=== PATIENT | male | born 1950 | race Caucasian/White ===

== ENCOUNTER 2020-08-14 05:34 | Outpatient (RCR) | payer MEDICARE ==
[~2020-08-14] VITALS: Ht 175.3 cm; Wt 70.5 kg
== END 2020-08-14 10:29 | disposition home or self-care (01) ==
LOC: PREOP 05:34
PROVIDERS: ATTEND Internal Medicine
DX: Z01.812 Encounter for preprocedural laboratory examination (principal); R13.10 Dysphagia, unspecified; Z20.828 Contact with and (suspected) exposure to other viral communicable diseases
CPT/HCPCS: 87635

== ENCOUNTER 2020-08-17 08:57 | Day surgery (SDC) | payer MEDICARE ==
--- NOTE | 2020-08-09 18:57 | HISTORY AND PHYSICAL ---
DATE OF SERVICE: EGD HISTORY AND PHYSICAL HISTORY OF PRESENT ILLNESS: The patient is a 70-year-old white male, who reports over the past 2 to 3 months, intermittent dysphagia to solids. He has had no subsequent dysphagia to liquids. He denies any significant heartburn symptoms. He reports maybe once a year he will take antacids. He is helping to care for his son, who is terminal with squamous cell cancer of the esophagus for which his symptoms are understandably concerning. He denies melena or bright red blood per rectum and reports his weight has been stable. This is corroborated by a significant change in weight since I last saw him three months ago. He last accomplished colonoscopy in 2016. He had two diminutive tubular adenomas removed and a ten-year screening interval was recommended. He has had no previous EGD evaluation or barium evaluation that he is aware of. SOCIAL HISTORY: He is retired with no past smoking or significant alcohol intake history. He is not aware of any previous history of HPV disease. PHYSICAL EXAMINATION: GENERAL: Revealed a white male, slightly anxious, but in no acute distress. VITAL SIGNS: Blood pressure 118/72, weight 156.2 pounds, stable. HEENT: Oral cavity reveals a Mallampati 1 pharyngeal configuration. NECK: Revealed no JVD, adenopathy or bruits. CHEST: Clear to auscultation. CARDIOVASCULAR: Revealed a regular rate and rhythm without murmur, S3 or S4. ABDOMEN: Soft, supple without mass, organomegaly or tenderness. EXTREMITIES: Reveal no cyanosis, clubbing or edema. ASSESSMENT AND PLAN: For further investigation of dysphagia with the family history for squamous cell cancer of the esophagus, the patient is being set up for EGD evaluation after discussion. Prep instructions were given and questions were answered. Job ID: [id number] DocumentID: [id number] Dictated Date: 08/09/2020 15:24:16 Anime Artist Date: 08/09/2020 15:38:32 Dictated By: BALBINA STEINER MD
[~2020-08-17] VITALS: Ht 175.3 cm; Wt 70.5 kg
[2020-08-17] VITALS (13 sets, daily range): BP systolic 97–131; BP diastolic 57–81
[2020-08-17] MEDS ORDERED: D5 LR IV SOLUTION 1,000 ML IV ONE (09:04)
[2020-08-17] MEDS ORDERED: D5 LR IV SOLUTION 1,000 ML IV STA (09:13)
[2020-08-17] MEDS ORDERED: fentaNYL INJECTION 100 MCG/2 ML AMP IVP ONE (09:15)
[2020-08-17] MEDS ORDERED: LIDOCAINE JELLY 2% 6 ML SYRINGE MM PRN (09:15)
[2020-08-17] MEDS ORDERED: MIDAZOLAM 5 MG/5 ML (VERSED) VIAL IV ONE (09:15)
[2020-08-17] MEDS ORDERED: HURRICAINE EXT TUBE (BENZOCAINE) ONE (10:13)
[2020-08-17] MEDS ORDERED: LIDOCAINE JELLY 2% 6 ML SYRINGE ONE (10:13)
[2020-08-17] MEDS ORDERED: fentaNYL INJECTION 100 MCG/2 ML AMP ONE (10:13)
[2020-08-17] MEDS ORDERED: MIDAZOLAM 5 MG/5 ML (VERSED) VIAL ONE (10:13)
[2020-08-17] MEDS ORDERED: HURRICAINE EXT TUBE (BENZOCAINE) XX ONE (10:45)
--- NOTE | 2020-08-17 11:12 | Pre-Op Note & Conscious Sedat ---
Pre-Operative Progress Note H&P Reviewed The H&P was reviewed, patient examined and no changes noted. Date H&P Reviewed: Aug 17, 2020 Time H&P Reviewed: 09:35 Conscious Sedation Pre-Proced ASA Score 1 For ASA 3 and 4: Consider anesthesia and medical clearance. Also, for patients with a history of failed moderate sedation consider anesthesia. Airway Lungs Heart ASA score ASA 1: a normal healthy patient ASA 2: a patient with a mild systemic disease (mid diabetes, controlled hypertension, obesity ASA 3: a patient with a severe systemic disease that limits activity (angina, COPD, prior Myocardial infarction) ASA 4: a patient with an incapacitating disease that is a constant threat to life (CHF, renal failure) ASA 5: a moribund patient not expected to survive 24 hrs. (ruptured aneurysm) ASA 6: a declared brain- patient whose organs are being harvested. For emergent operations, add the letter E after the classification Mallampati Classification Grade 2 Sedation Plan Analgesia, Amnesia, Plan communicated to team members, Discussed options with patient/fam, Discussed risks with patient/fam The patient is an appropriate candidate to undergo the planned procedure, sedation, and anesthesia. The patient immediately re-assessed prior to indication. BALBINA STEINER MD Aug 17, 2020 11:12
--- NOTE | 2020-08-17 19:14 | OPERATIVE REPORT ---
DATE OF SERVICE: EGD SUMMARY INDICATION FOR THE PROCEDURE: Dysphagia, family history of squamous cell carcinoma of the esophagus, index case being his son diagnosed around the age of 46. DESCRIPTION OF PROCEDURE: The patient was placed in the left lateral decubitus position. The endoscope was inserted in the oral cavity and under direct visualization, esophagus was intubated. Endoscope was passed down the esophagus through the stomach and second portion of the duodenum. A careful inspection was made as the endoscope withdrawn. The patient tolerated the procedure well. FINDINGS: The proximal and mid esophagus were unremarkable. Small sliding hiatal hernia is present without evidence for erosive esophagitis. I could not rule out the possibility of short segment Lira's. Biopsies were obtained. There was no evidence again for ulceration, nodularity and the esophagus was otherwise unremarkable. No evidence of rings, webs, strictures or extrinsic compression noted. No diverticulum noted. The cardia, fundus, antrum, pylorus, pyloric channel, duodenal bulb and second portion of duodenum were unremarkable on gross inspection. ASSESSMENT: Small hiatal hernia is present without evidence for erosive esophagitis. No evidence for obstruction was noted. I discussed the importance of careful attention to mastication and slowing down his eating and drinking fluid with a meal. He is reassured by today's findings. Biopsies are pending to rule out short segment Lira's. Job ID: [id number] DocumentID: [id number] Dictated Date: 08/17/2020 11:44:21 Waste Cotton Cleaner Date: 08/17/2020 19:13:30 Dictated By: BALBINA STEINER MD
== END 2020-08-17 12:00 | disposition home or self-care (01) ==
LOC: ENDO 08:57
PROVIDERS: ATTEND Internal Medicine
DX: K29.50 Unspecified chronic gastritis without bleeding (principal); K44.9 Diaphragmatic hernia without obstruction or gangrene; K20.90 Esophagitis, unspecified without bleeding; Z80.0 Family history of malignant neoplasm of digestive organs